=== PATIENT | male | born 1945 | race Caucasian/White ===

== ENCOUNTER 2018-04-02 10:28 | Outpatient (CLI) | payer BC, SELFPAY ==
[2018-04-02 11:38] LABS: ALT 35 U/L (12-78); AST 16 U/L (15-37); Albumin 3.9 g/dL (3.4-5.0); Alkaline Phosphatase 56 U/L (46-116); Anion Gap 8.1 mmol/L (3-11); BUN 20 mg/dL (7-18); Bilirubin, Total 0.7 mg/dL (0.2-1.0); CO2 30.9 mmol/L (21.0-32.0); CREATININE 0.69 mg/dL (0.70-1.30); Calcium 9.2 mg/dL (8.5-10.1); Chloride 103 mmol/L (98-107); Cholesterol 145 mg/dL (50-200); Glucose 93 mg/dL (70-100); HDL Cholesterol 48 mg/dL (40-60); LDL CHOLESTEROL 82 mg/dL (<100); Potassium 4.5 mmol/L (3.5-5.1); Sodium 142 mmol/L (136-145); Total Protein 7.2 g/dL (6.4-8.2); Triglyceride 75 mg/dL (30-150)
== END 2018-04-02 10:48 ==
PROVIDERS: PCP Nurse Practitioner; Visit Provider Nurse Practitioner
DX: E78.5 Hyperlipidemia, unspecified (principal)
CPT/HCPCS: 36415; 80053; 80061; 83721

== ENCOUNTER 2020-03-24 03:57 | Outpatient (CLI) | payer BC, SELFPAY ==
[2020-03-24 16:53] LABS: HCT 47.8 % (40.0-50.0); HGB 16.1 g/dL (13.5-17.5); MCH 31.4 pg (27.0-33.0); MCHC 33.7 % (32.0-36.0); MCV 93.4 fL (80-95); MPV 11.2 fL (8.0-11.0); Platelet Count 235 10^3/uL (130-400); RBC 5.12 10^6/uL (4.36-5.78); RDW 12.4 % (11.8-14.1); RDW-SD 42.9 fL; WBC 5.02 10^3/uL (4.4-10.8)
[2020-03-24 17:17] LABS: ALT 41 U/L (16-63); AST 22 U/L (15-37); Alkaline Phosphatase 69 U/L (46-116); Anion Gap 9.5 mmol/L (3-11); BUN 18 mg/dL (7-18); CO2 26.5 mmol/L (21.0-32.0); CREATININE 0.6 mg/dL (0.70-1.30); Calcium 9.1 mg/dL (8.5-10.1); Chloride 105 mmol/L (98-107); Glucose 87 mg/dL (74-106); Potassium 4.3 mmol/L (3.5-5.1); Sodium 141 mmol/L (136-145)
[2020-03-25 13:05] LABS: Calculated LDL 85 mg/dL (<100); Cholesterol 148 mg/dL (<200); HDL Cholesterol 48 mg/dL (40-60); Triglyceride 78 mg/dL (<150)
== END 2020-03-24 03:58 | disposition home or self-care (01) ==
PROVIDERS: PCP Nurse Practitioner; Visit Provider Nurse Practitioner
DX: E78.5 Hyperlipidemia, unspecified (principal)
CPT/HCPCS: 36415; 80053; 80061; 85027

== ENCOUNTER 2021-03-28 09:32 | Outpatient (REF) | payer MEDICARE, OTHER, SELFPAY | END 2021-03-28 09:33 | disposition home or self-care (01) | LOC: LBN 09:32 | PROVIDERS: PCP Nurse Practitioner; Visit Provider Nurse Practitioner | DX: R82.90 Unspecified abnormal findings in urine (principal) | CPT/HCPCS: 87086 ==

== ENCOUNTER 2021-09-29 01:13 | Outpatient (CLI) | payer MEDICARE, OTHER, SELFPAY ==
[2021-09-29 10:24] LABS: HCT 47.1 % (40.0-50.0); HGB 15.7 g/dL (13.5-17.5); MCH 31.1 pg (27.0-33.0); MCHC 33.3 % (32.0-36.0); MCV 93 fL (80-95); MPV 10.7 fL (8.0-11.0); Platelet Count 221 10^3/uL (130-400); RBC 5.05 10^6/uL (4.36-5.78); RDW 12.8 % (11.8-14.1); WBC 5.61 10^3/uL (4.4-10.8)
[2021-09-29 10:54] LABS: ALT 40 U/L (16-63); AST 21 U/L (15-37); Albumin 3.7 g/dL (3.4-5.0); Alkaline Phosphatase 55 U/L (46-116); Anion Gap 6.8 mmol/L (3-11); BUN 15 mg/dL (7-18); Bilirubin, Total 0.8 mg/dL (0.2-1.0); CO2 31.2 mmol/L (21.0-32.0); CREATININE 0.5 mg/dL (0.70-1.30); Calcium 8.7 mg/dL (8.5-10.1); Calculated LDL 85 mg/dL (<100); Chloride 104 mmol/L (98-107); Cholesterol 147 mg/dL (<200); Glucose 98 mg/dL (74-106); HDL Cholesterol 50 mg/dL (40-60); Potassium 4.2 mmol/L (3.5-5.1); Sodium 142 mmol/L (136-145); Total Protein 7.1 g/dL (6.4-8.2); Triglyceride 62 mg/dL (<150)
== END 2021-09-29 01:14 | disposition home or self-care (01) ==
LOC: LBO 01:13
PROVIDERS: PCP Nurse Practitioner; Visit Provider Nurse Practitioner
DX: I48.0 Paroxysmal atrial fibrillation (principal); E78.5 Hyperlipidemia, unspecified; D72.819 Decreased white blood cell count, unspecified
CPT/HCPCS: 36415; 80053; 80061; 85027; 82274

== ENCOUNTER 2022-02-08 13:52 | Outpatient (CLI) | payer MEDICARE, OTHER, SELFPAY ==
--- NOTE | 2022-02-08 13:45 | RT.EKG_ITS ---
APPROVED REPORT Exam: Resting ECG Reason for Exam: L sided chest and arm pain Patient Location: O HR:66 bpm ECG Measurements Heart Rate 66 AXIS AZ 235 P 47 QRSd 103 QRS -15 QT 429 T 77 QTc 450 Conclusion Sinus rhythm...normal P axis, V-rate 50- 99 Prolonged AZ interval...AZ >220, V-rate 50- 90 Borderline left axis deviation...QRS axis (-15,-29) Nonspecific T abnormalities, lateral leads...T <-0.10mV, I aVL V5 V6 LVH
== END 2022-02-08 13:53 | disposition home or self-care (01) ==
LOC: DI.KIM 13:53
PROVIDERS: PCP Nurse Practitioner; Visit Provider Family Medicine
DX: R07.9 Chest pain, unspecified (principal); R94.31 Abnormal electrocardiogram [ECG] [EKG]
CPT/HCPCS: 93010

== ENCOUNTER 2022-02-13 01:19 | Outpatient (CLI) | payer MEDICARE, SELFPAY ==
--- NOTE | 2022-02-13 06:15 | ETT_ITS ---
APPROVED REPORT Exam: Exercise Treadmill Patient Location: Out-Patient Room/Bed: Stress Nurse: Deepali Griffiths RN Ordering Provider:MARIELY OCONNOR, Contact Number: [phone] BMI: 27.87 Baseline Rhythm: Sinus Rhythm Comment: 1DHB Indications: Chest pain Medical History Medical History: AFib, hard of hearing, pSVT, HLD Cardiac Medications: Nitroglycerin, atorvastatin, aspirin Allergies: NKA Cardiac Risk Factors: Hyperlipidemia, family hx Previous Cardiac Procedures: None Pretest Chest Pain Characteristics: None Exercise History: Indeterminate Physical Disabilities: None Lung Sounds: Clear to auscultation Heart Sounds: Regular Stress Test Details Test: Exercise stress testing was performed using a Christian protocol. Rest Stress HR Resting HR Supine: 72 bpm Max Heart Rate (APMHR): 142 bpm Resting HR Standin bpm Target HR (85% APMHR): 121 bpm Max HR Achieved: 125 bpm % of APMHR: 88 Recovery HR: 76 bpm HR response to stress: Normal HR response to stress BP Resting BP Supine: 142/90 mmHg Resting BP Standin/88 mmHg Max BP: 200/72 mmHg Recovery BP: 142/80 mmHg BP response to stress: Normal blood pressure response to stress. ECG Resting ECG: Sinus Rhythm, 1DHB Ectopy: None Stress ECG: Sinus Tachycardia, 1DHB ST Change: No significant ST segment changes noted Arrhythmia: Frequent PVCs, couplets, 3 beat run NSVT Recovery ECG: Sinus Rhythm Recovery ST Change: No significant ST segment changes noted Recovery Arrhythmia: Frequent PVCs, couplets, occasional PAC Comment: Ectopy decreased as recovery progressed Clinical Reason for Termination: Fatigue Stress Symptoms: General Fatigue, Dyspnea Exercise duration: 2 min59 sec Highest Stage Reached: Stage 1: 1.7 mph at 10% grade. Exercise capacity: 4.64 METs Angina Score: None Heath Treadmill Score: 2.7 Rate Pressure Product: [id number] Stress ECG Conclusion 1. The resting electrocardiogram showed sinus rhythm, first-degree AV block, poor R wave progression, left ventricular hypertrophy 2. Patient exercised on the Christian protocol and completed a workload of 4.64 METS, stopping due to fat igue 3. Normal heart rate and blood pressure response to exercise. The patient achieved 88% of predicted heart rate for age 4. There was no electrocardiographic evidence of myocardial ischemia 5. PVCs were seen Heath Treadmill Score is 2.7 which is Moderate risk. Stress Test Summary STAGE Time (mins) Speed (mph) Grade (%) HR BP SpO2 SYMPTOMS METS Supine 72 142/90 Standing 83 138/88 96% 1 3 1.7 10 119 94% Mild dyspnea 4.5 1 min recovery 96 200/72 94% 3 min recovery 81 160/80 95% Dyspnea improved 6 min recovery 76 142/80 96%
== END 2022-02-13 01:39 ==
LOC: DI 01:20
PROVIDERS: PCP Nurse Practitioner; Visit Provider Family Medicine
DX: R07.9 Chest pain, unspecified (principal)
CPT/HCPCS: 93016; 93018; 71046; 93017

== ENCOUNTER 2022-02-13 01:51 | Outpatient (CLI) | payer MEDICARE, SELFPAY ==
--- NOTE | 2022-02-13 12:58 | DI.RAD_ITS ---
Exam(s) XR CHEST 2V PA LATERAL EXAM: XR CHEST 2V PA LATERAL CLINICAL HISTORY: Chest pain work-up,r07.9. TECHNIQUE: 2D digital imaging was performed. COMPARISON: CR CHEST 2 VIEWS PA,LAT from 05/21/2014 FINDINGS: 2 views: Heart size is normal. The mediastinum is not widened. Left lung remains clear. There is, however, a 1.8 x 1.5 cm nodular density in the mid right lung fie ld. There is possibly this represents callus from a healed fracture in the right 5th rib which was n ot previously present. No other focal pulmonary findings nor pleural effusions. IMPRESSION: 18 x 15 millimeter nodular density projected over the right lung field as described above. If clinic ally indicated follow-up CT scan can be performed for added specificity. This would help determine i f this is a lung finding or rib finding. DATA REPOSITORY: RADIATION DOSE DELIVERED:
== END 2022-02-13 02:11 ==
LOC: DI 01:51
PROVIDERS: PCP Nurse Practitioner; Visit Provider Family Medicine
DX: R07.9 Chest pain, unspecified (principal); R91.8 Other nonspecific abnormal finding of lung field; R91.1 Solitary pulmonary nodule
CPT/HCPCS: 71046

== ENCOUNTER → 2023-01-22 14:20 | Outpatient (BNVA) | payer MEDICARE, SELFPAY | PROVIDERS: PCP Nurse Practitioner; Referring Provider Nurse Practitioner; Visit Provider Surgery | DX: K40.90 Unilateral inguinal hernia, without obstruction or gangrene, not specified as recurrent (principal) | CPT/HCPCS: 99203; 99214 ==

== ENCOUNTER 2023-04-29 03:23 | Outpatient (CLI) | payer MEDICARE, SELFPAY ==
[2023-04-29 16:30] LABS: ALT 38 U/L (16-63); AST 18 U/L (15-37); Albumin 3.6 g/dL (3.4-5.0); Alkaline Phosphatase 59 U/L (46-116); Anion Gap 8.4 mmol/L (3-11); BUN 25 mg/dL (7-18); Bilirubin, Total 0.7 mg/dL (0.2-1.0); CO2 27.6 mmol/L (21.0-32.0); CREATININE 0.7 mg/dL (0.70-1.30); Calculated LDL 87 mg/dL (<100); Chloride 105 mmol/L (98-107); Cholesterol 151 mg/dL (<200); Estimated GFR 93.15 (mL/min/1.73m2); Glucose 89 mg/dL (74-106); HDL Cholesterol 51 mg/dL (40-60); Potassium 4.1 mmol/L (3.5-5.1); Sodium 141 mmol/L (136-145); Total Protein 6.8 g/dL (6.4-8.2); Triglyceride 68 mg/dL (<150)
== END 2023-04-29 03:24 | disposition home or self-care (01) ==
LOC: LBO 03:24
PROVIDERS: Absent Provider Nurse Practitioner; PCP Nurse Practitioner; Referring Provider Nurse Practitioner; Visit Provider Nurse Practitioner
DX: E78.5 Hyperlipidemia, unspecified (principal)
CPT/HCPCS: 36415; 80053; 80061

== ENCOUNTER → 2023-06-19 08:33 | Outpatient (BNVA) | payer MEDICARE, SELFPAY | PROVIDERS: PCP Nurse Practitioner; Referring Provider Nurse Practitioner; Visit Provider Surgery | DX: K40.90 Unilateral inguinal hernia, without obstruction or gangrene, not specified as recurrent (principal); Z01.818 Encounter for other preprocedural examination | CPT/HCPCS: 99213 ==

== ENCOUNTER 2023-06-28 07:06 | Inpatient (IN) | payer MEDICARE, SELFPAY ==
[2023-06-28] VITALS (11 sets, daily range): BP systolic 121–157; BP diastolic 64–85; PULSE 49–71; RESP 12–19; TEMP 35.5–36.9; O2SAT 96–98; BMI 26.7
[2023-06-28] MEDS: Lactated Ringers 1,000 ML 80 ML IV (08:30)
[2023-06-28] MEDS: Gabapentin 300 MG CAP PO (10:09)
[2023-06-28] MEDS: Celecoxib 200 MG CAP PO (10:10)
[2023-06-28] MEDS: Acetaminophen 500 MG TAB 1000 MG PO (10:10)
--- NOTE | 2023-06-28 12:07 | ANES.PREOP_ITS ---
General Info Date of Service Date Performed: 06/28/23 Height: 5 ft 6 in Weight: 75.1 kg Body Mass Index (BMI): 26.7 Surgical Procedure: Operation Date: 06/28/23 11:40 Proposed Procedure Side Surgeon p Herniorrhaphy Inguinal w/Mesh Right Jaren Hill MD Meds Allergies and Home Medications Allergies Allergy/AdvReac Type Severity Reaction Status Date / Time No Known Allergies Allergy Verified 06/28/23 08:08 Home Medication Medication Instructions Recorded aspirin 81 mg tablet,delayed 81 mg PO DAILY #90 tab-caps 04/07/15 release (Aspir-) atorvastatin 40 mg tablet (Lipitor) 40 mg PO DAILY #90 tab-caps 04/10/23 Current Visit Medications: Current Medications Generic Name Dose Route Start Last Admin Trade Name Freq PRN Reason Stop Dose Admin Acetaminophen 1,000 mg 06/28/23 06:00 06/28/23 10:10 Acetaminophen 500 Mg Tab PO 06/28/23 23:59 1,000 mg PREOP [place] Administration Celecoxib 200 mg 06/28/23 06:00 06/28/23 10:10 Celecoxib 200 Mg Cap PO 06/28/23 23:59 200 mg PREOP [place] Administration Droperidol 0.625 mg 06/28/23 10:52 Droperidol 5 Mg/2 Ml Vial IVP DIRECTED PRN Nausea Ephedrine Sulfate 0 mg 06/28/23 10:52 Ephedrine 25 Mg/5 Ml Syringe IVP DIRECTED PRN Fentanyl 0 mcg 06/28/23 10:52 Fentanyl 100 Mcg/2 Ml Vial IVP DIRECTED PRN Gabapentin 300 mg 06/28/23 06:00 06/28/23 10:09 Gabapentin 300 Mg Cap PO 06/28/23 23:59 300 mg PREOP [place]DE[place] Administration Hydromorphone HCl 0 mg 06/28/23 10:52 Hydromorphone 2 Mg/Ml Syr IVP DIRECTED PRN Ringer's Solution 1,000 mls @ 80 mls/hr 06/28/23 06:00 06/28/23 08:30 IV 06/28/23 23:59 80 mls/hr INFUSION MODESTO Administration IV Miscellaneous Supplies 1 each 06/28/23 06:00 Iv Access IV 06/28/23 23:59 DIRECTED [place] Naloxone HCl 0 mg 06/28/23 10:52 Naloxone 0.4 Mg/Ml Vial IVP PRN PRN Sodium Chloride 0 ml 06/28/23 06:00 Normal Saline Flush 10 Ml Syr IV 06/28/23 23:59 PRN PRN Sodium Chloride 0 ml 06/28/23 06:00 Normal Saline 10 Ml Vial IJ 06/28/23 23:59 DIRECTED PRN Sterile Water 0 ml 06/28/23 06:00 Water,Injection,Sterile 10 Ml Vial IJ 06/28/23 23:59 DIRECTED PRN PFSH Active Problems Active Problems: Problem Status Onset Code Cerumen impaction H61.20 Loss of speech discrimination H93.299 Sensorineural hearing loss (SNHL) of both ears H90.3 Right inguinal hernia K40.90 History of trauma of chest Z87.828 Chest pain R07.9 History of atrial fibrillation Z86.79 Routine medical exam Z00.00 [place] (hard of hearing) H91.90 Urinary hesitancy R39.11 Psoriasis L40.9 Medicare annual wellness visit, subsequent Z00.00 Psoriasis 09/01/14 L40.9 Paroxysmal supraventricular tachycardia seen on automotive technician 09/01/14 I47.1 Paroxysmal atrial fibrillation 04/07/15 I48.0 Leucopenia 04/07/15 D72.819 Hyperlipidemia 09/01/14 E78.5 Exposure to silica 09/01/14 Z77.29 Episodic lightheadedness 09/01/14 R42 Conjunctiva disorder 09/01/14 H11.9 Tobacco Smoking/Tobacco Use Status: Never Passive smoking exposure: No Second hand exposure: No Alcohol Alcohol Intake: never Substance Use Substance use: Never Vital Signs and Lab Results Vital Signs Most Recent Vital Signs in EMR: Most Recent Vital Signs Temp Pulse Resp BP Pulse Ox 36.8 C 67 16 141/78 H 98 06/28/23 08:09 06/28/23 08:09 06/28/23 08:09 06/28/23 08:09 06/28/23 08:09 Lab Results Blood Type / Crossmatch: No Data to Display Complete Blood Count: No Data to Display Complete Metabolic Panel: No Data to Display Liver Function Panel: No Data to Display Coagulation Panel: No Data to Display Cardiac Panel: No Data to Display Arterial Blood Gas: No Data to Display Venous Blood Gas: No Data to Display Pancreas Panel: No Data to Display Thyroid Panel: No Data to Display Infectious Disease: No Data to Display Blood Cultures: No Data to Display Toxicology Panel: No Data to Display Anesthesia Assessment and Plan Anesthesia History Personal History: No History of Anesthesia Complications Family History: No Family History of Anesthesia Complications Exercise Tolerance Exercise Tolerance: Metabolic Equivalents>4 Pertinent Negatives Pertinent Negatives: Other ((+) GERD) Cardiac & Pulmonary Exam Cardiac Exam: Heart Murmur Present (Systolic Click) Pulmonary Exam: Clear Bilateral Breath Sounds Implantable Cardiac Device Does patient have a Pacemaker or an ICD?: No Airway Exam Known Difficult Airway: No Mallampati Class: 2 Mouth Opening: Normal (> 3cm) Thyromental Distance: Greater than 3 cm Neck Range of Motion: Full ROM Neck Circumference: Normal Teeth Condition: Generalized Poor Dentition ASA Classification ASA Score: ASA 3 Emergency Case?: No NPO Status NPO Status: NPO Clears >2 hours, Solids >8 hours Anesthesia Plan Resuscitation Status: Full Code Anesthesia Technique: General Anesthesia Airway Planned: Endotracheal Tube Monitors Used: Standard Monitors
[2023-06-28] MEDS: ceFAZolin 2 GM/50 ML BAG IVPB (12:40)
--- NOTE | 2023-06-28 13:08 | W.ANESNERVE ---
Nerve Block Single Injection Procedure Date and Time Date Performed: 06/28/23 Procedure Start: 12:37 Location Where Procedure Performed Procedure Location: Operating Room Procedure Stop: 11:46 Reason Performed: Postoperative Analgesia Requesting Provider: Jaren Hill Timeout Performed Timeout Performed: Yes Monitoring Used ECG, Blood Pressure, SpO2, ETCO2 and See EMR for corresponding vital signs Sterility Sterility: Hand Hygiene, Surgical Cap, Surgical Mask, Sterile Gloves, Sterile Drape/Sheet, Sterile Gown, Eye Protection and Chlorhexidine Sedation Given During Procedure Sedation Given (Indicate Dose Given): No Sedation given Patient Mental Status Patient Mental Status: Performed under general anesthesia Nerve Block 1st Nerve Block: Laterality: Right Block Type: TAP Unilateral Ultrasound Image Saved?: Yes Needle / Catheter Used: 100mm SonoPlex II Local Anesthetic Bolus (Indicate Dose Given): None, Bupivacaine 0.5% Dose:: 0.5%/10cc (50mg) and Exparel Dose:: 1.33%/10cc (133mg) Additives (Indicate Dose Given): Epinephrine to make 1:200,000 (5mcg/ml) Dose:: 100mcg Ultrasound: Sterile probe cover and gel used Nerve Stimulator: Not Used Paresthesia: None Procedure Tolerated: No Complications and Patient tolerated well Procedure Outcome: Successful Performed By: Tru Osborn
[2023-06-28] MEDS: Bupivacaine 0.25% Pres-Free W/EPI 30 ML VIAL (13:17)
--- NOTE | 2023-06-28 13:35 | ROE_ITS ---
Date of service: 06/28/23 Time of Service: 13:35 Operative Note Operative Note DATE OF PROCEDURE: 06/28/23 PRE-OP DIAGNOSIS: Right inguinal hernia POST-OP DIAGNOSIS: other (Right-sided femoral hernia) PROCEDURE: Open right-sided femoral hernia repair with permanent mesh SURGEON: Jaren Hill DUST BOX WORKER: Ann Rivera ANESTHESIA TYPE: Local By Surgeon, General LMA/ETT and Primary Nerve Block Refer to Anesthesia Record ESTIMATED BLOOD LOSS: 15 PATHOLOGY: none sent COMPLICATIONS: None Patient was transported to: PACU Patient's condition: stable Implants: Bard PerFix light extra-large plug Indications: Seugn is an 78-year-old male with a painful bulge in the right groin that seems consistent with a right-sided inguinal hernia Findings: Right-sided femoral hernia Procedure Description: Patient was brought to the operating room, moved onto the OR table. Routine preoperative timeout procedure was conducted. He was intubated after the induction of general endotracheal anesthesia. Next, the anesthesia team provided a right-sided inguinal tap block with real-time ultrasound guidance. I then prepped and draped the right groin in the usual fashion. With the patient asleep, the hernia was more easily reduced. During that exam, it became obvious that this was a bit lower than the right inguinal ligament, and seemed most consistent with a right-sided femoral hernia. Next, I anesthetized the skin with a generous field block. I then created a longitudinal incision along the lower portion of the inguinal ligament. I dissected down to the subcutaneous spaces identifying the hernia sac. With exposure, I was able to confirm that this was actually a femoral, rather than an inguinal hernia. The inguinal canal itself felt healthy, and I did not appreciate any hernia defects with deep palpation. I then circumferentially dissected the neck of the hernia away from the femoral triangle. Great care was taken along the lateral margins to avoid any injury to the adjacent femoral vein and artery. With the dissection complete, I could reduce the hernia back into the peritoneal space. The hernia sac was not opened. Next, I used a Bard PerFix light extra-large plug to obliterate this space. It was affixed in place with [id number] Prolene sutures incorporating the fascia of the adductor longus, the underside of the inguinal ligament, and the fascia of the femoral sheath. Again, great care was taken with suture placement adjacent to the femoral vessels. The superficial fascia was then approximated with interrupted Vicryl sutures, and the overlying subcutaneous layers were closed with interrupted Vicryl stitches as well. Finally, the skin was approximated with running subcuticular sutures. Bandages were applied, the patient was allowed awaken from anesthesia and transferred to the recovery unit.
--- NOTE | 2023-06-28 14:08 | DSE_ITS ---
Date of service: 06/28/23 Time of Service: 14:28 DS: Diagnosis Discharge Diagnosis (1) Femoral hernia of right side: Status: Acute Asessment and Plan: Post-operative follow up 07/08 at 9:30 AM Discharge Plan Disposition Patient Disposition: Home Condition: Good Discharge Details Admit Date/Time: 06/28/23 07:06 Admit Provider: Jaren Hill Attending Provider: Jaren Hill Primary Care Provider: Danelle Manzano [facility] Course Hospital Course: Segun is an 78 year old man with a symptomatic painful right sided femoral hernia. He underwent uncomplicated femoral hernia repair. He had no means of transportation or assistance at home after the procudre and required outpatient observation. He was discharged home on 06/29/23 with instructions and outpatient follow up. Home Meds and New Rx's Prescriptions: New tramadol 50 mg tablet 50 mg PO Q8H PRNQty: 9 0RF Rx Instructions: take one tablet by mouth up to every eight hours if needed for more severe pain. Continued atorvastatin [Lipitor] 40 mg tablet 40 mg PO DAILY Qty: 90 3RF aspirin [Aspir-81] 81 MG tablet,delayed release (DR/EC) 81 mg PO DAILY Qty: 90 Discharge Instructions Instructions: Open Herniorrhaphy (DC) Additional Instructions: Segun. We were able to repair your hernia without much difficulty. In fact, you had a femoral hernia rather than an inguinal hernia. This does not change any of your postoperative care or anticipated recovery. I did use a permanent mesh like we discussed before surgery. Expect some bruising after surgery, which is quite common. You should be up and moving around getting some basic simple exercise every day. Keep your lifting less than 10 pounds until we see each other in the office. I did provide a prescription for a stronger pain medication if you need it. If ibuprofen and tylenol are enough to keep you comfortable, that is fine as well. Please call if you have any questions at all. 1. Resume all of your regular medications. 2. Use ehating pads and ice packs as needed around the incision site. 3. Alternate over the counter tylenol and ibuprofen every 6 hours for 2 days, then use as needed. Use the prescription for tramadol if those other medications are not enough to control the pain. 4. Leave bandage in place for 24 hours, then remove. 5. Shower with warm soapy water. Pat dry. Use a bandaid if needed to protect your clothing. 6. No soaking or tub baths until I see you in the office. 7. No heavy lifting until I see you in the office. 8. Call the office (or go directly to the emergency room after hours) if you notice any of the following: Develop chills (warm to touch), or if you have a thermometer and your temperature is above 101 Difficulty breathing or difficultly swallowing Persistent vomiting Any bleeding ? exceeding one tablespoon 9. Call your physician if the site where your intravenous was started becomes red, swollen, painful, and warm to touch. Referrals: Jaren Hill MD [ [facility] STAFF PHYSICIAN] - (07/08 at 9:30 AM) Activity:: no heavy lifting Equipment/Supplies:: No Equipment Needed Diet:: As Tolerated DS: Summary Time Spent with Patient providing and/or coordinating discharge services: Less than 30 minutes Status at Discharge Functional status at discharge: independent ambulation Overall status at discharge: patient is back to baseline Mental Status: mental status grossly normal Speech and Movement: speech and movement normal Mood: congruent mood Affect: normal affect Quality:SDOH Health Related Social Needs: No Data to Display Exam Psych Mental Status: mental status grossly normal Speech and Movement: speech and movement normal Mood: congruent mood Affect: normal affect DS: Data Vitals/I&O Vitals and I&O: Vital Signs Temperature 98.1 F 06/28/23 13:55 Pulse 57 L 06/28/23 13:55 Pulse Rhythm Regular 06/28/23 08:09 Respiratory Rate 19 06/28/23 13:55 Respiratory Depth Deep 06/28/23 08:09 Blood Pressure 139/69 06/28/23 13:55 Pulse Oximetry 97 06/28/23 13:55 Respiratory End-tidal CO2 06/28/23 13:55 Oxygen Delivery Method Room Air 06/28/23 13:55 Oxygen Flow Rate 0 06/28/23 08:09 Pain Level 0 06/28/23 13:55 Intake & Output 06/27/23 06/28/23 06/28/23 23:59 11:59 23:59 Intake Total 750 / 750 Output Total Balance 735 / 735 Weight 165 lb 9.074 oz 165 lb 9.074 oz Intake: IV 750 / 750 Output: Estimated Blood Loss Other: Emesis Description None PFSH All Active Problems Femoral hernia of right side (Acute) Cerumen impaction (Acute) Loss of speech discrimination (Acute) Sensorineural hearing loss (SNHL) of both ears (Acute) History of trauma of chest (Chronic) Kicked by a horse on the R side Chest pain (Acute) History of atrial fibrillation (Acute) Routine medical exam (Acute) [place] (hard of hearing) (Acute) Urinary hesitancy (Acute) Psoriasis (Chronic) Medicare annual wellness visit, subsequent (Acute) Psoriasis (Acute 09/01/14) Paroxysmal supraventricular tachycardia seen on director of cardiac rehabilitation (Acute 09/01/14) Seen on holter Monitor Paroxysmal atrial fibrillation (Acute 04/07/15) 12/2014 Leucopenia (Acute 04/07/15) Reassured by Hematology 12/2014 Hyperlipidemia (Acute 09/01/14) Exposure to silica (Acute 09/01/14) Episodic lightheadedness (Acute 09/01/14) Conjunctiva disorder (Acute 09/01/14) Family History Sister Diabetes Heart disease Mother No problems noted. 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 Pets and animals: Yes Pets and animals: cat(s), dog(s), horse(s) and other Details: cows Sexually active: No Do you think of yourself as: straight/heterosexual Current gender identity: male What is your relationship status?: How often do you talk on the phone with friends or family?: three or more times per week How often do you get together with friends or relatives?: once per week How often do you attend islam or pentecostal services?: 1-3 times per year Do you belong to any clubs or organized social groups?: no Panel score (0-1 are the most socially isolated patients): 2 What type of physical activity do you participate in: other Details: 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
--- NOTE | 2023-06-28 14:19 | W.ANESPOSTOP ---
Postoperative Evaluation Date, Time and Location Date Performed: 06/28/23 Time Performed: 14:21 Patient Location: Day Surgery Unit Vital Signs Most Recent Imported Vital Signs: Most Recent Vital Signs Temp Pulse Resp BP Pulse Ox 36.7 C 59 L 15 143/71 H 98 06/28/23 14:10 06/28/23 14:10 06/28/23 14:10 06/28/23 14:10 06/28/23 14:10 Pain Score Most Recent Pain Score: Most Recent Pain Score Pain Level 2 06/28/23 14:10 Assessment Mental Status: Awake (Alert & Oriented to Patient Baseline) Airway and Respiratory Function: Patent airway with normal (patient baseline) respiratory exam Cardiovascular Function: Hemodynamically Stable Hydration Status: Adequately Hydrated Nausea & Vomiting: No Nausea or Vomiting Pain: Pain is tolerable per patient Peripheral Nerve Block: Regional nerve block not resolved at time of post operative discharge
[2023-06-28] MEDS: traMADol 50 MG TAB PO (14:46)
[2023-06-28] MEDS: Normal Saline Flush 10 ML SYR IVP (20:50)
[2023-06-29 07:52] VITALS: BP 131/65; PULSE 63; TEMP 36; O2SAT 98
[2023-06-29] MEDS: Atorvastatin 40 MG TAB PO (09:43)
[2023-06-29] MEDS: Psyllium PKT 1 EACH PO (09:43)
[2023-06-29] MEDS: Normal Saline Flush 10 ML SYR IVP (09:44)
--- NOTE | 2023-06-29 14:30 | NUR.NOTE ---
Nursing Note: pT DC home with daughter via private vehicle. Has all personal belongings, has no further questions regarding DC instuctions. Escorted to main entrance via WC by this nurse.
== END 2023-06-29 14:09 | disposition home or self-care (01) | DRG 352 ==
LOC: PDS 14:22 → MS 07-05 13:29
PROVIDERS: Admitting Provider Surgery; PCP Nurse Practitioner; Visit Provider Surgery
PROC: 0YU70JZ Supplement Right Femoral Region with Synthetic Substitute, Open Approach (ICD-10-PCS; CPT 49550; principal; 2023-06-28 11:30)
DX: K41.90 Unilateral femoral hernia, without obstruction or gangrene, not specified as recurrent (principal); I48.91 Unspecified atrial fibrillation; H90.3 Sensorineural hearing loss, bilateral; L40.9 Psoriasis, unspecified; E78.5 Hyperlipidemia, unspecified; Z79.899 Other long term (current) drug therapy; Z79.82 Long term (current) use of aspirin
CPT/HCPCS: 49550; 76942; C1781; C9290; J0171; J0665; J0690; J1100; J2001; J2371; J2405; J2704

== ENCOUNTER → 2023-07-09 09:13 | Outpatient (BNVA) | payer MEDICARE, SELFPAY | PROVIDERS: PCP Nurse Practitioner; Referring Provider Nurse Practitioner; Visit Provider Surgery | DX: Z48.817 Encounter for surgical aftercare following surgery on the skin and subcutaneous tissue (principal) ==

== ENCOUNTER 2024-06-03 02:15 | Outpatient (CLI) | payer MEDICARE, SELFPAY ==
[2024-06-03 09:47] LABS: HCT 46.8 % (40.0-50.0); HGB 15.3 g/dL (13.5-17.5); MCH 31.2 pg (27.0-33.0); MCHC 32.7 % (32.0-36.0); MCV 96 fL (80-95); MPV 10.8 fL (8.0-11.0); Platelet Count 204 10^3/uL (130-400); RDW 12.9 % (11.8-14.1); RDW-SD 45.7 fL; WBC 4.83 10^3/uL (4.4-10.8)
[2024-06-03 10:23] LABS: ALT 32 U/L (16-63); AST 16 U/L (15-37); Albumin 3.9 g/dL (3.4-5.0); Alkaline Phosphatase 56 U/L (46-116); Anion Gap 4.5 mmol/L (3-11); BUN 18 mg/dL (7-18); Bilirubin, Total 0.9 mg/dL (0.2-1.0); CO2 32.5 mmol/L (21.0-32.0); CREATININE 0.6 mg/dL (0.70-1.30); Calcium 9.2 mg/dL (8.5-10.1); Calculated LDL 93 mg/dL (<100); Chloride 106 mmol/L (98-107); Cholesterol 176 mg/dL (<200); Estimated GFR 96.98 (mL/min/1.73m2); Glucose 100 mg/dL (74-106); HDL Cholesterol 71 mg/dL (>or=40); Potassium 4.4 mmol/L (3.5-5.1); Sodium 143 mmol/L (136-145); Triglyceride 63 mg/dL (<150)
== END 2024-06-03 02:16 | disposition home or self-care (01) ==
PROVIDERS: PCP Nurse Practitioner; Visit Provider Nurse Practitioner
DX: E78.5 Hyperlipidemia, unspecified; I48.0 Paroxysmal atrial fibrillation
CPT/HCPCS: 36415; 80053; 80061; 85027